=== PATIENT | male | born 1995 | race American Indian/Alaskan Native ===

== ENCOUNTER 2021-07-03 08:03 | Emergency (ER) | payer SELFPAY ==
[2021-07-03 08:20] VITALS: BP 139/94
--- NOTE | 2021-07-03 08:41 | Emergency Department Report ---
ED ENT HPI - General Chief complaint: Earache Stated complaint: RT EAR PAIN Time Seen by Provider: 07/03/21 08:36 Source: patient Mode of arrival: Ambulatory Limitations: No Limitations - History of Present Illness Initial comments: 26-year-old -[place] male presents to the emergency room for 3-day history of right ear pain. He states it has been draining. He states he has had this before but a long time ago. He denies any fever chills no chest pain no shortness of breath. He reports a surgical history of tubes in his right ear. MD complaint: ear pain Onset/Timin -: days(s) Location: R ear Severity scale (0 -10): 5 Quality: aching Consistency: constant Improves with: none Associated Symptoms: discharge from ear. denies: fever, cough, gum swelling, toothache, pain with swallowing, sore throat - Related Data Previous Rx's Medication Instructions Recorded Last Taken Type Ibuprofen [Motrin 600 MG tab] 600 mg PO Q8H PRN #15 tablet 07/03/21 Unknown Rx Neomyc/Colist/Hydrocort/Thonzn 4 drop OD TID 10 Days #1 bottle 07/03/21 Unknown Rx [Cortisporin-Tc Ear Suspension] Allergies Allergy/AdvReac Type Severity Reaction Status Date / Time No Known Allergies Allergy Unverified 07/03/21 08:16 ED Dental HPI - General Chief complaint: Earache Stated complaint: RT EAR PAIN Time Seen by Provider: 07/03/21 08:36 Source: patient Mode of arrival: Ambulatory Limitations: No Limitations - Related Data Previous Rx's Medication Instructions Recorded Last Taken Type Ibuprofen [Motrin 600 MG tab] 600 mg PO Q8H PRN #15 tablet 07/03/21 Unknown Rx Neomyc/Colist/Hydrocort/Thonzn 4 drop OD TID 10 Days #1 bottle 07/03/21 Unknown Rx [Cortisporin-Tc Ear Suspension] Allergies Allergy/AdvReac Type Severity Reaction Status Date / Time No Known Allergies Allergy Unverified 07/03/21 08:16 ED Review of Systems ROS: Stated complaint: RT EAR PAIN Other details as noted in HPI Comment: All other systems reviewed and negative ED Past Medical Hx - Past Medical History Previous Medical History?: No - Surgical History Past Surgical History?: Yes Additional Surgical History: Tubes in ear as a child - Medications Home Medications: Home Medications Medication Instructions Recorded Confirmed Last Taken Type Ibuprofen [Motrin 600 MG tab] 600 mg PO Q8H PRN #15 tablet 07/03/21 Unknown Rx Neomyc/Colist/Hydrocort/Thonzn 4 drop OD TID 10 Days #1 bottle 07/03/21 Unknown Rx [Cortisporin-Tc Ear Suspension] ED Physical Exam - General Limitations: No Limitations General appearance: alert, in no apparent distress - Head Head exam: Present: atraumatic, normocephalic - Eye Eye exam: Present: normal appearance - ENT ENT exam: Present: mucous membranes moist. Absent: normal external ear exam - Expanded ENT Exam Expanded TM/Canal exam: Loss of Landmarks: Right TM, Canal Discharge: Right TM, Canal Tenderness: Right TM - Neck Neck exam: Present: normal inspection - Respiratory Respiratory exam: Present: normal lung sounds bilaterally. Absent: respiratory distress, accessory muscle use - Cardiovascular Cardiovascular Exam: Present: regular rate. Absent: systolic murmur, diastolic murmur, rubs, gallop - GI/Abdominal GI/Abdominal exam: Present: soft, normal bowel sounds - Rectal Rectal exam: Present: deferred - Extremities Exam Extremities exam: Present: normal inspection - Back Exam Back exam: Present: normal inspection - Neurological Exam Neurological exam: Present: alert, oriented X3 - Psychiatric Psychiatric exam: Present: normal affect, normal mood - Skin Skin exam: Present: warm, dry, intact, normal color. Absent: rash ED Course Vital Signs 07/03/21 08:18 Temperature 98.5 F Pulse Rate 74 Respiratory 18 Rate Blood Pressure 139/94 O2 Sat by Pulse 100 Oximetry ED Medical Decision Making - Medical Decision Making 26-year-old -[place] male presents to the emergency room for 3-day history of right ear pain. He states it has been draining. He states he has had this before but a long time ago. He denies any fever chills no chest pain no shortness of breath. He reports a surgical history of tubes in his right ear. Patient be treated for right otitis externa. Start Cortisporin Critical care attestation.: If time is entered above; I have spent that time in minutes in the direct care of this critically ill patient, excluding procedure time. ED Disposition Clinical Impression: Otitis externa Qualifiers: Otitis externa type: unspecified type Chronicity: acute Laterality: right Qualified Code(s): H60.501 - Unspecified acute noninfective otitis externa, right ear Disposition: HOME / SELF CARE / HOMELESS Is pt being admited?: No Does the pt Need Aspirin: No Condition: Stable Instructions: Otitis Externa, Eriv-di-Igqu Additional Instructions: Take medications as prescribed. Be sure to increase your water intake while taking ibuprofen. Follow-up with the ear nose and throat provider if no improvement. Prescriptions: Neomyc/Colist/Hydrocort/Thonzn [Cortisporin-Tc Ear Suspension] 4 drop OD TID 10 Days #1 bottle Ibuprofen [Motrin 600 MG tab] 600 mg PO Q8H PRN #15 tablet PRN Reason: Pain Referrals: WINNIE DONIS MD [Referring] - 3-5 Days Forms: Work/School Release Form(ED) Time of Disposition: 08:40
== END 2021-07-03 08:48 | disposition home or self-care (01) ==
LOC: ED 08:03
DX: H60.91 Unspecified otitis externa, right ear (principal); Z98.890 Other specified postprocedural states
CPT/HCPCS: 99282